=== PATIENT | female | born 2000 | race Two or more races ===

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

== ENCOUNTER 2019-07-08 06:00 | Inpatient (IN) | payer MEDICAID ==
[2019-07-08] MEDS ORDERED: MISOPROSTOL 0.2 MG TABLET ONE (06:24)
[2019-07-08] MEDS ORDERED: OXYTOCIN 10 UNIT/ML VIAL ONE (06:24)
[2019-07-08] MEDS ORDERED: LIDOCAINE 1% INJ-PF (10 MG/ML) 30 ML SDV ONE (06:24)
[2019-07-08] MEDS ORDERED: OXYTOCIN/NORMAL SALINE 20 UNIT/1,000 ML RTUINJ ONE (06:24)
[2019-07-08] MEDS ORDERED: RINGERS SOLUTION,LACTATED 1,000 ML IV PRN (06:29)
[2019-07-08] MEDS ORDERED: RINGERS SOLUTION,LACTATED 1,000 ML IV ONE (06:29)
[2019-07-08 07:11] LABS: ABSOLUTE EOSINOPHILS # (AUTO) 0.1 10^3/uL (0.0-0.6); ABSOLUTE LYMPHOCYTES (AUTO) 1.4 10^3/uL (0.5-4.7); ABSOLUTE MONOCYTES (AUTO) 0.5 10^3/uL (0.1-1.4); BASOPHILS % (AUTO) 0.1 % (0-2); EOSINOPHILS % (AUTO) 0.7 % (0-6); HEMATOCRIT 38.2 % (36.0-47.0); LYMPHOCYTES % (AUTO) 13.6 % (13-45); MEAN CORPUSCULAR HEMOGLOBIN 30.8 pg (27.0-33.4); MEAN CORPUSCULAR HGB CONC 33.9 g/dL (32.0-36.0); MEAN CORPUSCULAR VOLUME 91 fl (80-97); PLATELET COUNT 229 10^3/uL (150-450); RED BLOOD COUNT 4.21 10^6/uL (3.72-5.28); RED CELL DISTRIBUTION WIDTH 13.9 % (11.5-14.0); SEGMENTED NEUTROPHILS % (AUTO) 80.6 % (42-78); TOTAL CELLS COUNTED % (AUTO) 100 %
--- NOTE | 2019-07-08 07:14 | Admission Physical ---
Datetime Report Generated by CPN: 07/08/2019 07:14 CURRENT ADMISSION Chief Complaint: Uterine Contractions Indication for Induction: Not Applicable Admit Impression : Term, Intrauterine ; Active Labor; Intact Membranes Admit Plan: Admit to Unit; Initiate Labor Protocol ALLERGIES Medication Allergies: No Medication Allergies: No Known Allergies (07/08/2019) Latex: No Latex Allergies OBSTETRICAL HISTORY EDC: 07/07/2019 00:00 : 2 Para: 1 Term: 1 Livin Gestational Diabetes: No Rh Sensitization: No Incompetent Cervix: No GRACIE: No Infertility: No ART Treatment: No Uterine Anomaly: No IUGR: No Hx Previous C/S: No Macrosomia: No Hx Loss/Stillborn: No PIH: No Hx : No Placenta Previa/Abruption: No Depression/PP Depression: No PTL/PROM: No Post Hemorrhage: No Current Procedures: Ultrasound Obstetrical History Comments: G1- 41 weeks 8lbs male no complications G2-current late entry to care at 22 weeks SEE RECORDS Alcohol: No Marijuana : No Cocaine: No Other Illicit Drugs: No Cigarettes: Never Smoker. [id number] MEDICAL HISTORY Diabetes: No Blood Transfusion: No Pulmonary Disease (Asthma, TB): No Breast Disease: No Hypertension: No Non Destructive Testing Specialist Surgery: No Heart Disease: No Hosp/Surgery: No Autoimmune Disorder: No Anesthetic Complications: No Kidney Disease: No Abnormal Pap Smear: No Neuro/Epilepsy: No Psychiatric Disorders: No Other Medical Diseases: No Hepatitis/Liver Disease: No Significant Family History: No Varicosities/Phlebitis: No Trauma/Violence : No Thyroid Dysfunction: No Medical History Comments: left ACL surgery 2016, failed 1 hour EFW- 12 percentile- 3 week lag INFECTIOUS HISTORY Gonorrhea: No Genital Herpes: No Chlamydia: No Tuberculosis: No Syphilis: No Hepatitis: No HIV/AIDS Exposure: No Rash or Viral Illness: No HPV: No PHYSICAL EXAM General: Normal HEENT: Normal Neurologic: Normal Thyroid: Deferred Heart: Normal Lungs: Normal Breast: Deferred Back: Normal Abdomen: Normal Genitourinary Exam: Normal Extremities: Normal DTRs: Normal Pelvic Type: Adequate Vital Signs: Reviewed VAGINAL EXAM Dilatation: 6 Effacement: 100 Station: 0 Contraction Comments: q 2-3 MEMBRANES Membranes: Intact FETUS A EGA: 40.1 Monitoring: External US FHR- Baseline: 125 Variability: Moderate 6-25bpm Accelerations: 15X15 Decelerations: None FHR Category: Category I Presentation: Vertex Admit Comment: 19yo at 40+1ega presents for uterine contractions. Cvx 6cm. Admit for Active labor. EFW 12% on 06/18. Failed 1 hr GTT passed 3 hr GTT. GBS negative. Admit to labor and delivery - anticipate . Pt desires epidural. Will augment labor if needed. PLANS FOR LABOR AND DELIVERY Labor and Delivery: None Pain Management: Epidural Feeding Preference: Breast Benefit of Breast Feed Discussed: Yes Circumcision: Yes INFORMED CONSENT Informed Consent Obtained: Vaginal Delivery; Risks, Benefits and Alternatives Discussed Signature: with User ID: [email or web address]
[2019-07-08] MEDS ORDERED: EPHEDRINE SULFATE INJ 50 MG/1 ML AMPULE ONE (07:26)
[2019-07-08] MEDS ORDERED: BUPIVACAINE HCL 0.25 % INJ/PF (2.5 MG/1 ML) 30 ML VIAL ONE (07:26)
[2019-07-08] MEDS ORDERED: FENTANYL/BUPIVACAINE/NS/PF 300 MCG/150 ML RTUINJ EPI ONE (07:26)
[2019-07-08 07:51] LABS: APPEARANCE,URINE CLOUDY; BILIRUBIN,URINE NEGATIVE (NEGATIVE); GLUCOSE, URINE NEGATIVE (NEGATIVE); KETONES,URINE NEGATIVE (NEGATIVE); LEUKOCYTE ESTERASE,URINE LARGE (NEGATIVE); NITRITE,URINE NEGATIVE (NEGATIVE); PROTEIN,URINE 30 mg/dL (NEGATIVE); URINE SPECIFIC GRAVITY 1.026
[2019-07-08 07:56] LABS: COLOR,URINE YELLOW
[2019-07-08 08:07] LABS: URINE AMPHETAMINES SCREEN NEGATIVE; URINE BARBITURATES SCREEN NEGATIVE; URINE BENZODIAZEPINES SCREEN NEGATIVE; URINE COCAINE SCREEN NEGATIVE; URINE MARIJUANA (THC) SCREEN NEGATIVE; URINE METHADONE SCREEN NEGATIVE; URINE PHENCYCLIDINE SCREEN NEGATIVE
[2019-07-08] MEDS ORDERED: PROMETHAZINE HCL 25 MG SUPP.RECT PR PRN (11:56)
[2019-07-08] MEDS ORDERED: MEASLES,MUMPS&RUBELLA VACC/PF 0.5 ML VIAL SUBCUT PRN (11:56)
[2019-07-08] MEDS ORDERED: NA PHOS,M-B/NA PHOS,DI-BA (ADULT) 133 ML ENEMA PR PRN (11:56)
[2019-07-08] MEDS ORDERED: MAGNESIUM HYDROXIDE SUSP 30 ML UDCUP PO PRN (11:56)
[2019-07-08] MEDS ORDERED: PROMETHAZINE HCL INJ 25 MG/1 ML VIAL IV PRN (11:56)
[2019-07-08] MEDS ORDERED: DIBUCAINE 1% OINTMENT 56 GM TP PRN (11:56)
[2019-07-08] MEDS ORDERED: PROMETHAZINE HCL 25 MG TABLET PO PRN (11:56)
[2019-07-08] MEDS ORDERED: DIPH/PERTUSS(ACELL)/TETANUS VAC/PF 0.5 ML SYR (>=10YO) IM PRN (11:56)
[2019-07-08] MEDS ORDERED: PSEUDOEPHEDRINE HCL 30 MG TABLET PO PRN (11:56)
[2019-07-08] MEDS ORDERED: OXYTOCIN/NORMAL SALINE 20 UNIT/1,000 ML RTUINJ IV PRN (11:56)
[2019-07-08] MEDS ORDERED: DIPHENHYDRAMINE HCL 25 MG CAPSULE PO PRN (11:56)
[2019-07-08] MEDS ORDERED: BENZOCAINE/MENTHOL AEROSOL SPRAY 56 ML TOP PRN (11:56)
[2019-07-08] MEDS ORDERED: GLYCERIN/WITCH HAZEL LEAF 1 EACH MED..WIPE TP PRN (11:56)
[2019-07-08] MEDS ORDERED: IBUPROFEN 800 MG TABLET ONE (14:36)
[2019-07-08] MEDS ORDERED: BENZOCAINE/MENTHOL AEROSOL SPRAY 56 ML ONE (14:37)
[2019-07-08] MEDS: DOCUSATE SODIUM 100 MG CAPSULE PO SCH (17:35)
[2019-07-08] MEDS: IBUPROFEN 800 MG TABLET PO SCH ×2 (17:35→18:39)
[2019-07-08] MEDS: FERROUS SULFATE 325 MG TABLET PO SCH (17:35)
[2019-07-08] MEDS: FAMOTIDINE 20 MG TABLET PO SCH (21:23)
[2019-07-09] MEDS: IBUPROFEN 800 MG TABLET PO SCH ×3 (02:14→18:29)
[2019-07-09 08:35] LABS: HEMATOCRIT 36.1 % (36.0-47.0); HEMOGLOBIN 12.4 g/dL (12.0-15.5); MEAN CORPUSCULAR HEMOGLOBIN 31.3 pg (27.0-33.4); MEAN CORPUSCULAR HGB CONC 34.3 g/dL (32.0-36.0); MEAN CORPUSCULAR VOLUME 91 fl (80-97); PLATELET COUNT 221 10^3/uL (150-450); RED BLOOD COUNT 3.95 10^6/uL (3.72-5.28); RED CELL DISTRIBUTION WIDTH 13.9 % (11.5-14.0); WHITE BLOOD COUNT 9.1 10^3/uL (4.0-10.5)
[2019-07-09] MEDS: PRENATAL VITAMIN W DHA CAPSULE PO SCH (10:12)
[2019-07-09] MEDS: SENNOSIDES/DOCUSATE 8.6-50 MG 1 EACH TABLET PO SCH (10:12)
[2019-07-09] MEDS: FAMOTIDINE 20 MG TABLET PO SCH ×2 (10:12→22:08)
[2019-07-09] MEDS: DOCUSATE SODIUM 100 MG CAPSULE PO SCH ×2 (10:12→18:21)
[2019-07-09] MEDS: FERROUS SULFATE 325 MG TABLET PO SCH ×2 (10:13→18:21)
[2019-07-09] MEDS: ACETAMINOPHEN 325 MG TABLET PO PRN ×2 (10:31→20:31)
--- NOTE | 2019-07-09 12:46 | PDOC PROGRESS REPORT ---
Subjective-OB Progress Note for:: 07/09/19 Subjective: reports bleeding slowing, pain controlled with current meds, denies needs Physical Exam (OB) Vital Signs: Temp Pulse Resp BP Pulse Ox 98.0 F 64 17 103/59 L 100 07/09/19 08:11 07/09/19 08:11 07/09/19 08:11 07/09/19 08:11 07/09/19 08:11 Intake & Output 07/08/19 07/09/19 07/10/19 06:59 06:59 06:59 Intake Total 480 Balance 480 Weight 77.2 kg - Abdomen Description: Soft Hernia Present: No Fundal Description: Firm, Midline Fundal Height: u/u - u/2 - Abdominal Distension: No distension Tenderness: Nontender - Extremities Lower extremities: Christiano's sign - neg Calf: Normal, Nontender Objective-Diagnostic Laboratory: 07/09/19 07:38 07/09/19 07:38 WBC 9.1 RBC 3.95 Hgb 12.4 Hct 36.1 MCV 91 MCH 31.3 MCHC 34.3 RDW 13.9 Plt Count 221 Assessment and Plan(PN) - Assessment and Plan (1) Vaginal delivery Is this a current diagnosis for this admission?: Yes - Time Spent with Patient Time with patient: Less than 15 minutes Medications reviewed and adjusted accordingly: Yes - Disposition Anticipated Discharge: Home Within: within 24 hours
[2019-07-10] MEDS: IBUPROFEN 800 MG TABLET PO SCH ×3 (01:39→17:34)
[2019-07-10] MEDS: ACETAMINOPHEN 325 MG TABLET PO PRN (08:41)
[2019-07-10] MEDS: FAMOTIDINE 20 MG TABLET PO SCH (09:53)
[2019-07-10] MEDS: PRENATAL VITAMIN W DHA CAPSULE PO SCH (09:54)
[2019-07-10] MEDS: SENNOSIDES/DOCUSATE 8.6-50 MG 1 EACH TABLET PO SCH (09:54)
[2019-07-10] MEDS: FERROUS SULFATE 325 MG TABLET PO SCH ×2 (09:54→17:33)
[2019-07-10] MEDS: DOCUSATE SODIUM 100 MG CAPSULE PO SCH ×2 (09:54→17:33)
--- NOTE | 2019-07-10 10:44 | PDOC DISCHARGE SUMMARY ---
Final Diagnosis Discharge Date: 07/10/19 - Final Diagnosis (1) Late care Is this a current diagnosis for this admission?: Yes (2) Vaginal delivery Is this a current diagnosis for this admission?: Yes Discharge Data - Discharge Medication Home Medications: Vit/Iron Fum/Folic AC [ Tablet] 1 each PO DAILY 09/04/17 Ascorbic Acid [Vitamin C 500 mg Tablet] 500 mg PO DAILY 07/08/19 Iron,Carb/Vit C/Vit B12/Folic [Iron 100 Plus Tablet] 1 each PO DAILY 07/08/19 Reason(s) for Admission: Onset of Labor Procedures: NST Intrapartum Procedure(s): Spontaneous Vaginal Delivery - Diagnosis Test Laboratory: Temp Pulse Resp BP Pulse Ox 97.9 F 62 16 109/63 99 07/10/19 07:19 07/10/19 07:19 07/10/19 07:19 07/10/19 07:19 07/10/19 07:19 07/08/19 07/08/19 07/09/19 06:07 06:45 07:38 RBC 4.21 3.95 Hgb 13.0 12.4 Hct 38.2 36.1 Urine Opiates Screen NEGATIVE - Discharge information/Instructions Discharge Activity: Balance Activity w/Rest, Pelvic Rest Discharge Diet: Regular Disposition: HOME, SELF-CARE Follow up with: [facility] in: 4, Weeks
[2019-07-10 11:07] VITALS: BP 103/59
--- NOTE | 2019-07-14 07:43 | Delivery Summary ---
Del Sum A-C Datetime Report Generated by CPN: 07/14/2019 07:42 DELIVERY PERSONNEL DELIVERY PERSONNEL: [id number] Delivery Doctor:: Emelia Berrios CNM Nurse Visual Basic Developer Certified:: Emelia Berrios CNM Labor and Delivery Nurse:: Magaly Veloz RNediphone operator Nurse:: KELLY Suarez Roaster Supervisor/MANAGER OF COMPLIANCE: Mini Castle CST Additional Personnel: : KELLY Miguel MATERNAL INFORMATION Delivery Anesthesia: Epidural Medications After Delivery: Pitocin Bolus-Please Comment Meds After Delivery Comment: Pitocin 20 units in 1000 ml nss open for bolus after delivery of placenta Delivery QBL: 50 Maternal Complications: None Provider Comments: pt progressed to c/c/2 with urge to push and BBOW. Pt. started pushing had SROM with clear fluid, continued pushing and delivered a viable baby boy thru nuchal x1 (unable to reduce but delivered thru). Baby placed on maternal abdomen skin to skin, cord allowed to stop pulsating, clamped x2 and cut by grandmother (3vc noted, cord blood obtained). Placenta delivered spontaneously intact. Fundus firm at u-3 with small clots but bleeding stable after rub. Mother and baby continue skin to skin and bonding at this time. No lacerations noted. Baby with terminal meconium noted. LABOR SUMMARY EDC: 07/07/2019 00:00 No. Babies in Womb: 1 Attempted: No Labor Anesthesia: Epidural LABOR INFORMATION Reason for Induction: Not Applicable Onset of Labor: 07/08/2019 05:00 Complete Dilatation: 07/08/2019 11:14 Oxytocin: N/A Group B Beta Strep: negative (Annotations: Data stored by [facility] on behalf of user) Group B Beta Strep: negative MEMBRANES Membranes Rupture Method: Spontaneous Rupture of Membranes: 07/08/2019 11:17 Length of Rupture (hr): 0.15 Amniotic Fluid Color: Clear Amniotic Fluid Amount: Moderate Amniotic Fluid Odor: Normal STAGES OF LABOR Stage 1 hr: 6 Stage 1 min: 14 Stage 2 hr: 0 Stage 2 min: 12 Stage 3 hr: 0 Stage 3 min: 5 Total Time in Labor hr: 6 Total Time in Labor min: 31 VAGINAL DELIVERY Episiotomy: None Laceration #1: None Laceration Extension #1: N/A Other Laceration: small abrasion-perineal Laceration Repair: Not Applicable Laceration Repair Note: n/a Sponge Count Correct: N/A Sharps Count Correct: N/A CSECTION DELIVERY Primary Indication: N/A Secondary Indication: N/A CSection Incidence: N/A Labor: N/A Elective: N/A CSection Incision: N/A BABY A INFORMATION Infant Delivery Date/Time: 07/08/2019 11:26 Method of Delivery: Vaginal Born in Route : No : N/A Forceps: N/A Vacuum Extraction: N/A Shoulder Dystocia : No PRESENTATION/POSITION BABY A Presentation: Cephalic Cephalic Presentation: Vertex Vertex Position: Right Occipital Anterior Breech Presentation: N/A PLACENTA INFORMATION BABY A Placenta Delivery Time : 07/08/2019 11:31 Placenta Method of Delivery: Spontaneous Placenta Status: Delivered SCORES BABY A Heart Rate 1 min: >100 bpm Resp Effort 1 min: Good Cry Reflex Irritability 1 min: Cough or Sneeze or Pulls Away Muscle Tone 1 min: Active Motion Color 1 min: Body [place], Extremities Blue Resuscitation Effort 1 min: Tactile Stimulation SCORE 1 MIN: 9 Heart Rate 5 min: >100 bpm Resp Effort 5 min: Good Cry Reflex Irritability 5 min: Cough or Sneeze or Pulls Away Muscle Tone 5 min: Active Motion Color 5 min: Body [place], Extremities Blue Resuscitation Effort 5 min: N/A SCORE 5 MIN: 9 Resuscitation Effort 10 min: N/A INFORMATION BABY A Gestational Age at Delivery: 40.1 Gestational Status: Full Term- 39- 40.6 Weeks Infant Outcome : Liveborn Infant Condition : Stable Infant Sex: Male IDENTIFICATION BABY A Verification Date/Time: 07/08/2019 11:35 ID Band Number: [id number] Mother's Name Verified: Yes RN Verifying Infant: Blossom Camp RNC Additional Verifying Personnel: Magaly Roselia RN WEIGHT/LENGTH BABY A Infant Birthweight (gm): 3415 Weight (lb): 7 Infant Weight (oz): 8 Length (in): 20.50 Infant Length (cm): 52.07 CORD INFORMATION BABY A No. Cord Vessels: 1 Nuchal Cord : Around Neck x1, Loose Cord Blood Taken: Yes-For Storage (Mom's Blood type +) Suction: None ASSESSMENT BABY A Complications: None Physical Findings at Delivery: Within Normal Limits Respirations: Appears Normal Skin to Skin: Yes Executive Office Manager/ALS Called : No Infant Care By: D Karina RNC Transferred To: Remains with Mother BABY B INFORMATION : N/A SIGNATURES Assignment: Charlene Troncoso MD Signature: with User ID: [email or web address] : with User ID: [email or web address]
== END 2019-07-10 18:23 | disposition home or self-care (01) | DRG 807 ==
LOC: LC 06:00 → LR 06:24 → 2S 15:50
PROVIDERS: ADMIT Student in an Organized Health Care Education/Training Program; ATTEND Student in an Organized Health Care Education/Training Program
PROC: 10E0XZZ Delivery of Products of Conception, External Approach (ICD-10-PCS; principal; 2019-07-08)
DX: O69.81X0 Labor and delivery complicated by cord around neck, without compression, not applicable or unspecified (principal); Z37.0 Single live birth; Z3A.41 41 weeks gestation of pregnancy
CPT/HCPCS: 36415; 80307; 81005; 85025; 85027; 86592; 86850; 86900; 86901; 90715; J2590; J3010; J3490